=== PATIENT | female | born 1975 | race Caucasian/White ===

== ENCOUNTER → 2021-08-11 16:47 | Outpatient (CLI) | payer OTHER, SELFPAY ==
--- NOTE | ~2021-08-11 | XR_ITS ---
EXAMINATION: XR shoulder RT min 2V INDICATION: Right shoulder pain TECHNIQUE: Four views of the right shoulder are submitted. COMPARISON: 12/06/2019 FINDINGS: Normal alignment. No fracture. Glenohumeral and acromioclavicular joint spaces are normal. Soft tissues are unremarkable. IMPRESSION: 1. No acute osseous abnormality. Reviewed, dictated and finalized at location A.
--- NOTE | ~2021-08-11 | XR_ITS ---
EXAMINATION: XR knee LT min 4V DATE: 08/11/2021 17:23 INDICATION: Left knee pain and swelling TECHNIQUE: Four views of the left knee were obtained. COMPARISON: None. FINDINGS: Alignment is normal. No fracture or osteochondral lesion. There is mild tricompartmental os teoarthritis characterized by tiny marginal osteophytes. Mild irregularity of the anterior tubercle o f the tibia may reflect prior surgical change. No acute abnormality is identified. No joint effusion/ synovitis. Soft tissues are unremarkable. IMPRESSION: 1. No acute osseous abnormality. Reviewed, dictated and finalized at location A.
== END ==
DX: M25.511 Pain in right shoulder (principal); M25.562 Pain in left knee
CPT/HCPCS: 73030; 73564

== ENCOUNTER 2025-02-22 09:39 | Outpatient (CLI) | payer OTHER, SELFPAY ==
--- NOTE | ~2025-02-22 | MR_ITS ---
MRI of the right foot CLINICAL HISTORY: Spontaneous rupture flexor tendons, pain TECHNIQUE: Sagittal T1-weighted and STIR images, axial proton-density and proton-density fat-sat imag es, and coronal T1-weighted and proton-density fat-sat images were performed. FINDINGS: No acute fracture identified. No acute marrow edema identified. No evidence for osteitis. T here is cystic change in the first metatarsal head, most compatible with chronic change. There is mil d degenerative change of the first MTP joint. There is moderate degenerative change of the second MTP joint. Small to moderate second MTP joint effusion is present. Minimal effusion present the first MT P joint. Probable minimal intermetatarsal bursitis of the first interspace. There may be minimal intermetatars al bursitis at the third interspace. No Lopez's neuroma evident. Visualized flexor and extensor tend ons are intact. No soft tissue mass or fluid collection evident. Plantar fascia intact. Lisfranc liga ment is intact. 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 Mild degenerative change of the first MTP joint, with minimal effusion. Mild intermetatarsal bursitis of the first and third interspaces. Reviewed, dictated and finalized at [facility]. IMPRESSION: Moderate degenerative change of the second MTP joint with moderate joint effusi on. Mild degenerative change of the first MTP joint, with minimal effusion. Mild intermetatarsal bursitis of the first and third interspaces.
== END 2025-02-22 09:40 | disposition home or self-care (01) ==
PROVIDERS: PCP Podiatrist Foot & Ankle Surgery; Visit Provider Podiatrist Foot & Ankle Surgery
DX: M66.361 Spontaneous rupture of flexor tendons, right lower leg (principal); M77.51 Other enthesopathy of right foot and ankle; G57.61 Lesion of plantar nerve, right lower limb; M25.474 Effusion, right foot
CPT/HCPCS: 73718

== ENCOUNTER 2025-09-25 16:07 | Outpatient (CLI) | payer OTHER, SELFPAY ==
--- NOTE | ~2025-09-25 | XR_ITS ---
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 Findings: No acute fracture or malalignment. No significant degenerative changes. Soft tissues unremarkable. Impression: No acute fracture or malalignment. Reviewed, dictated and finalized at location P. TLE MACHINE OPERATOR Impression: No acute fracture or malalignment.
== END 2025-09-25 16:08 | disposition home or self-care (01) ==
PROVIDERS: PCP Podiatrist Foot & Ankle Surgery
DX: M25.551 Pain in right hip (principal); M25.552 Pain in left hip
CPT/HCPCS: 73521